=== PATIENT | male | born 1980 | race Caucasian/White ===

== ENCOUNTER 2018-10-18 08:03 | Outpatient (CLI) | payer OTHER | END 2018-10-18 13:29 | disposition home or self-care (01) | LOC: RAD 08:03 | DX: M25.511 Pain in right shoulder (principal); M25.562 Pain in left knee; M54.5 Low back pain ==

== ENCOUNTER 2018-10-18 11:01 | Outpatient (CLI) | payer OTHER ==
[~2018-10-18] VITALS: Ht 175.3 cm; Wt 79.4 kg
== END 2018-10-18 11:15 | disposition home or self-care (01) ==
LOC: OFIC 805 11:01
DX: H93.13 Tinnitus, bilateral (principal); R09.81 Nasal congestion

== ENCOUNTER → 2019-06-17 11:53 | Outpatient (CLI) | payer OTHER | END | disposition home or self-care (01) | LOC: LAB 11:53 | DX: R41.89 Other symptoms and signs involving cognitive functions and awareness (principal); R41.3 Other amnesia; E03.8 Other specified hypothyroidism; F03.90 Unspecified dementia, unspecified severity, without behavioral disturbance, psychotic disturbance, mood disturbance, and anxiety; E78.49 Other hyperlipidemia; R10.84 Generalized abdominal pain; K62.5 Hemorrhage of anus and rectum ==

== ENCOUNTER 2019-06-18 10:06 | Outpatient (CLI) | payer OTHER | END 2019-06-18 10:09 | disposition home or self-care (01) | LOC: SONOGRAMA 10:06 | DX: R41.3 Other amnesia (principal); D49.6 Neoplasm of unspecified behavior of brain; G40.909 Epilepsy, unspecified, not intractable, without status epilepticus | CPT/HCPCS: 70553 ==

== ENCOUNTER 2020-04-23 15:43 | Outpatient (CLI) | payer OTHER | END 2020-04-23 16:43 | disposition home or self-care (01) | LOC: OFIC 805 15:43 | PROVIDERS: ATTEND Otolaryngology | DX: H93.13 Tinnitus, bilateral (principal); R09.81 Nasal congestion; J34.2 Deviated nasal septum; J34.3 Hypertrophy of nasal turbinates ==

== ENCOUNTER 2020-05-22 13:07 | Outpatient (CLI) | payer OTHER | END 2020-05-22 13:11 | disposition home or self-care (01) | LOC: RAD 13:07 → TOM 14:30 | PROVIDERS: ATTEND Podiatrist Foot Surgery | DX: J32.0 Chronic maxillary sinusitis (principal); J34.2 Deviated nasal septum; M77.31 Calcaneal spur, right foot; M77.32 Calcaneal spur, left foot ==

== ENCOUNTER → 2021-04-02 08:48 | Outpatient (CLI) | payer OTHER | END | disposition home or self-care (01) | LOC: RAD 08:48 | DX: M99.11 Subluxation complex (vertebral) of cervical region (principal) ==